=== PATIENT | male | born 1975 | race Caucasian/White ===

== ENCOUNTER → 2016-10-15 | Outpatient (CLI) | payer OTHER | LOC: RAD 18:19 | PROVIDERS: ATTEND Internal Medicine | DX: C83.38 Diffuse large B-cell lymphoma, lymph nodes of multiple sites (principal) | CPT/HCPCS: 78815; A9552 ==

== ENCOUNTER 2016-12-12 14:59 | Outpatient (CLI) | payer OTHER ==
[2016-12-12 15:28] LABS: HEMATOCRIT 24.7 % (37.9-51.0); HEMOGLOBIN 8.9 g/dL (13.5-17.0); MEAN CORPUSCULAR HGB CONC 35.9 g/dL (32.0-36.0); MEAN CORPUSCULAR VOLUME 95 fl (80-97); RED BLOOD COUNT 2.61 10^6/uL (4.35-5.55); RED CELL DISTRIBUTION WIDTH 11.6 % (11.5-14.0)
[2016-12-12] MEDS ORDERED: NORMAL SALINE 1000 ML 1,000 ML IV PRN (15:33)
[2016-12-12 16:00] LABS: WHITE BLOOD COUNT 1.4 10^3/uL (4.0-10.5)
[2016-12-12] MEDS ORDERED: DIPHENHYDRAMINE HCL 25 MG CAPSULE PO PRN (16:00)
[2016-12-12] MEDS ORDERED: ACETAMINOPHEN 325 MG TABLET PO PRN (16:00)
[2016-12-12 17:07] VITALS: BP 102/65
[2016-12-13 13:56] LABS: PATH REVIEW PATHOLOGIST REVIEWED
== END 2016-12-12 17:30 | disposition home or self-care (01) ==
LOC: II 14:59 → 2N 15:02 → II 17:30
PROVIDERS: ATTEND Internal Medicine
PROC: 30233N1 Transfusion of Nonautologous Red Blood Cells into Peripheral Vein, Percutaneous Approach (ICD-10-PCS; principal; 2016-12-12)
DX: D69.6 Thrombocytopenia, unspecified (principal)
CPT/HCPCS: 86900; 86901; 36415; 36430; P9035

== ENCOUNTER 2016-12-13 10:35 | Outpatient (CLI) | payer OTHER ==
[~2016-12-13 10:35] MED LIST: NORMAL SALINE 1000 ML 1,000 ML IV PRN
[2016-12-13 11:08] LABS: HEMATOCRIT 22.3 % (37.9-51.0); HGB HCT DIFFERENCE 1.7; MEAN CORPUSCULAR HEMOGLOBIN 33.9 pg (27.0-33.4); MEAN CORPUSCULAR VOLUME 94 fl (80-97); RED BLOOD COUNT 2.37 10^6/uL (4.35-5.55); RED CELL DISTRIBUTION WIDTH 11.7 % (11.5-14.0)
[2016-12-13] MEDS ORDERED: ACETAMINOPHEN 325 MG TABLET PO PRN (11:30)
[2016-12-13] MEDS ORDERED: DIPHENHYDRAMINE HCL 25 MG CAPSULE PO PRN (11:30)
[2016-12-13 12:54] VITALS: BP 108/68
== END 2016-12-13 13:00 | disposition home or self-care (01) ==
LOC: II 10:35 → 2N 10:36 → II 13:00
PROVIDERS: ATTEND Internal Medicine
PROC: 30243R1 Transfusion of Nonautologous Platelets into Central Vein, Percutaneous Approach (ICD-10-PCS; principal; 2016-12-13)
DX: D69.6 Thrombocytopenia, unspecified (principal)
CPT/HCPCS: 86900; 86901; 36415; 36430; P9035

== ENCOUNTER 2016-12-15 15:34 | Outpatient (CLI) | payer OTHER ==
[~2016-12-15 15:34] MED LIST changes: +ACETAMINOPHEN 325 MG TABLET PO PRN; +DIPHENHYDRAMINE HCL 25 MG CAPSULE PO PRN; +FUROSEMIDE INJ/PF 20 MG/2 ML SDV IV PRN
[2016-12-15 16:21] LABS: MEAN CORPUSCULAR HEMOGLOBIN 34.1 pg (27.0-33.4); MEAN CORPUSCULAR HGB CONC 35.8 g/dL (32.0-36.0); MEAN CORPUSCULAR VOLUME 95 fl (80-97); RED BLOOD COUNT 2.22 10^6/uL (4.35-5.55); RED CELL DISTRIBUTION WIDTH 11.7 % (11.5-14.0)
[2016-12-15 16:45] LABS: WHITE BLOOD COUNT 6.8 10^3/uL (4.0-10.5)
[2016-12-15 16:49] LABS: HEMATOCRIT 21.2 % (37.9-51.0); HGB HCT DIFFERENCE 1.6
[2016-12-15 16:51] LABS: HEMOGLOBIN 7.6 g/dL (13.5-17.0)
[2016-12-16 03:48] VITALS: BP 128/84
== END 2016-12-16 03:52 | disposition home or self-care (01) ==
LOC: II 15:34 → 2S 15:41 → 2N 16:13 → II 12-16 03:52
PROVIDERS: ATTEND Internal Medicine
PROC: 30243N1 Transfusion of Nonautologous Red Blood Cells into Central Vein, Percutaneous Approach (ICD-10-PCS; principal; 2016-12-15)
DX: C83.30 Diffuse large B-cell lymphoma, unspecified site (principal)
CPT/HCPCS: 86900; 86901; 36430; 86850; 86920; P9016; P9035

== ENCOUNTER 2017-01-04 15:24 | Outpatient (CLI) | payer OTHER ==
[~2017-01-04 15:24] MED LIST changes: -FUROSEMIDE INJ/PF 20 MG/2 ML SDV IV PRN; -NORMAL SALINE 1000 ML 1,000 ML IV PRN
[2017-01-04 17:47] LABS: HEMATOCRIT 22.6 % (37.9-51.0); HEMOGLOBIN 8.2 g/dL (13.5-17.0); MEAN CORPUSCULAR HEMOGLOBIN 31.2 pg (27.0-33.4); MEAN CORPUSCULAR HGB CONC 36.2 g/dL (32.0-36.0); RED BLOOD COUNT 2.62 10^6/uL (4.35-5.55); RED CELL DISTRIBUTION WIDTH 20.4 % (11.5-14.0)
[2017-01-04 18:44] LABS: MEAN CORPUSCULAR VOLUME 86 fl (80-97)
[2017-01-04 20:54] VITALS: BP 122/81
[2017-01-08 19:53] LABS: PATH REVIEW PATHOLOGIST REVIEWED
== END 2017-01-04 21:54 | disposition home or self-care (01) ==
LOC: II 15:24 → 2N 15:25 → II 21:54
PROVIDERS: ATTEND Internal Medicine
PROC: 30233N1 Transfusion of Nonautologous Red Blood Cells into Peripheral Vein, Percutaneous Approach (ICD-10-PCS; principal; 2017-01-04)
DX: D69.6 Thrombocytopenia, unspecified (principal)
CPT/HCPCS: 86900; 86901; 36415; 36430; P9035

== ENCOUNTER 2017-01-08 14:48 | Outpatient (CLI) | payer OTHER ==
[2017-01-08] MEDS ORDERED: DIPHENHYDRAMINE HCL 25 MG CAPSULE PO PRN (15:22)
[2017-01-08] MEDS ORDERED: ACETAMINOPHEN 325 MG TABLET PO PRN (15:22)
[2017-01-08] MEDS ORDERED: FUROSEMIDE INJ/PF 20 MG/2 ML SDV IV PRN (15:23)
[2017-01-08] MEDS ORDERED: NORMAL SALINE 250 ML IV PRN (15:29)
[2017-01-08 15:30] LABS: HGB HCT DIFFERENCE 1.8; MEAN CORPUSCULAR HEMOGLOBIN 30.9 pg (27.0-33.4); MEAN CORPUSCULAR HGB CONC 36.6 g/dL (32.0-36.0); MEAN CORPUSCULAR VOLUME 84 fl (80-97); RED BLOOD COUNT 2.13 10^6/uL (4.35-5.55); RED CELL DISTRIBUTION WIDTH 20.3 % (11.5-14.0); WHITE BLOOD COUNT 2.4 10^3/uL (4.0-10.5)
[2017-01-08 15:57] LABS: HEMOGLOBIN 6.6 g/dL (13.5-17.0)
[2017-01-09 11:45] VITALS: BP 110/73
== END 2017-01-09 12:07 | disposition home or self-care (01) ==
LOC: II 14:48 → 5 14:54 → II 01-09 12:07
PROVIDERS: ATTEND Internal Medicine
PROC: 30243R1 Transfusion of Nonautologous Platelets into Central Vein, Percutaneous Approach (ICD-10-PCS; principal; 2017-01-08)
PROC: 30243N1 Transfusion of Nonautologous Red Blood Cells into Central Vein, Percutaneous Approach (ICD-10-PCS; 2017-01-08)
PROC: 30243R1 Transfusion of Nonautologous Platelets into Central Vein, Percutaneous Approach (ICD-10-PCS; 2017-01-09)
DX: D69.6 Thrombocytopenia, unspecified (principal); D64.81 Anemia due to antineoplastic chemotherapy
CPT/HCPCS: 36415; 36430; 86850; 86900; 86901; 86920; J1940; P9016; P9035

== ENCOUNTER → 2017-10-23 | Outpatient (CLI) | payer OTHER ==
--- NOTE | 2017-10-24 09:36 | RADIOLOGY REPORT (SQ) ---
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 TECHNIQUE: Blood glucose level was verified. Above dose of FDG was injected intravenously. 2-D seg mented attenuation correction images were obtained from the base of the skull to the midthighs. Nonc ontrast CT images were obtained for attenuation correction and fusion with emission images. CT image s were performed without oral or intravenous contrast and are not sensitive for parenchymal lesions. A series of overlapping emission PET images were obtained. [facility] by the radiologist. Images stored on PACS. LIMITATIONS: None. FINDINGS: HEAD AND NECK: A punctate focus of increased metabolic activity is seen in the anterior ed ge left submandibular gland, with SUV of 5.8. This is abnormal but nonspecific. No discrete mass is identified in this region on the noncontrast CT portion of the exam. CHEST: No areas of abnormal metabolic activity in the chest. Specifically, left lower hilar nodule s een on 10/15/2016 is no longer identified. ABDOMEN AND PELVIS: In the right lower quadrant mesenteries to the ileocolic region, a 3.9 x 2 cm sof t tissue mass is present which is non metabolic, with SUV of 1.0 (was 4.5 x 3 cm in size with SUV 4.8 to 7.3 on 10/15/2016). There is a tiny focus of metabolic activity in the splenic flexure of colon with SUV of 4.3, nonspeci fic. PROXIMAL LOWER EXTREMITIES: No areas of abnormal metabolic activity in the soft tissues of the lower extremities. BONES: No abnormal metabolic activity in the visualized skeleton. ADDITIONAL CT FINDINGS: Right-sided permanent central line tip in the superior vena cava. Stones in the gallbladder. Mild splenomegaly without abnormal increased activity. OTHER: Liver background activity 2.4 SUV. Blood pool background activity 1.7 SUV IMPRESSION: No hypermetabolic adenopathy report. No pathologic activity in the spleen. Right lower quadrant soft tissue mass along the right colon mesenteries is non metabolic and smaller on today's exam Incidental finding of punctate foci of increased uptake in the left submandibular gland and hepatic f lexure colon, of uncertain clinical significance TECHNICAL DOCUMENTATION: JOB ID: [id number] [employer]- All Rights Reserved
== END ==
LOC: RAD 15:42
PROVIDERS: ATTEND Internal Medicine
DX: C83.38 Diffuse large B-cell lymphoma, lymph nodes of multiple sites (principal)
CPT/HCPCS: 78815; A9552

== ENCOUNTER → 2017-12-30 | Outpatient (CLI) | payer OTHER ==
--- NOTE | 2017-12-31 08:06 | RADIOLOGY REPORT (SQ) ---
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 TECHNIQUE: Blood glucose level was verified. Above dose of FDG was injected intravenously. 2-D seg mented attenuation correction images were obtained from the base of the skull to the midthighs. Nonc ontrast CT images were obtained for attenuation correction and fusion with emission images. CT image s were performed without oral or intravenous contrast and are not sensitive for parenchymal lesions. A series of overlapping emission PET images were obtained. Images reviewed and manipulated at [email or web address] work station by the radiologist. Images stored on PACS. LIMITATIONS: None. FINDINGS: HEAD AND NECK: There is a punctate focus of increased uptake in a nonenlarged left submand ibular gland. Metabolic activity suv 5.8. this could represent inflammation from sialadenitis. Inf ection or tumor could not entirely be excluded CHEST: No areas of abnormal metabolic activity in the chest. ABDOMEN AND PELVIS: No abnormal increased metabolic activity in the abdomen or pelvis. There is non metabolic right lower quadrant soft tissue along the superior aspect of the distal ileum /ileocecal valve. Currently this measures 2.7 x 1.1 cm on axial image 174 (was 3.8 x 2 cm on 10/23/19 18 and 3.2 x 1.6 cm on 08/14/2017). PROXIMAL LOWER EXTREMITIES: No areas of abnormal metabolic activity in the soft tissues of the lower extremities. BONES: No abnormal metabolic activity in the visualized skeleton. ADDITIONAL CT FINDINGS: Stones in the gallbladder without gallbladder wall thickening or pericholecys tic fluid. Right jugular central line tip superior vena cava OTHER: Liver background activity 2.5 SUV. Blood pool background activity 1.8 SUV. IMPRESSION: Further decrease in size of non metabolic soft tissue in the right lower quadrant along previous area of lymphoma. Incidental finding of punctate increased uptake in the left submandibular gland of uncertain clinical significance. Gland is not enlarged. No surrounding inflammatory change in the surrounding fat TECHNICAL DOCUMENTATION: JOB ID: [id number] [employer]- All Rights Reserved Reading location - IP/workstation name: [email or web address]
== END ==
LOC: RAD 15:07
PROVIDERS: ATTEND Internal Medicine
DX: C83.38 Diffuse large B-cell lymphoma, lymph nodes of multiple sites (principal)
CPT/HCPCS: 78815; A9552

== ENCOUNTER → 2018-03-24 | Outpatient (CLI) | payer OTHER ==
--- NOTE | 2018-03-25 08:31 | RADIOLOGY REPORT (SQ) ---
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 TECHNIQUE: Blood glucose level was verified. Above dose of FDG was injected intravenously. 2-D seg mented attenuation correction images were obtained from the base of the skull to the midthighs. Nonc ontrast CT images were obtained for attenuation correction and fusion with emission images. CT image s were performed without oral or intravenous contrast and are not sensitive for parenchymal lesions. A series of overlapping emission PET images were obtained. Images reviewed and manipulated at [facility] work station by the radiologist. Images stored on PACS. LIMITATIONS: None. FINDINGS: HEAD AND NECK: There is persistent increased activity in the left submandibular gland, wit h SUV of 6.7. This is more prominent than on previous studies. Sialadenitis versus salivary gland t umor. CHEST: No areas of abnormal metabolic activity in the chest. ABDOMEN AND PELVIS: The right lower quadrant mass along the ileocecal valve and distal ileum is no lo nger identified. No adenopathy or metabolically active masses in the abdomen or pelvis PROXIMAL LOWER EXTREMITIES: No areas of abnormal metabolic activity in the soft tissues of the lower extremities. BONES: No abnormal metabolic activity in the visualized skeleton. ADDITIONAL CT FINDINGS: Stones in the gallbladder without gallbladder wall thickening. Right-sided c entral line tip superior vena cava. OTHER: Liver background SUV 2.9. Blood pool background activity 2.0 SUV. IMPRESSION: The primary lesion along the right lower quadrant, ileocecal valve region is no longer i dentified. Persistent abnormal increased activity in the left submandibular gland. Tumor versus sialadenitis. TECHNICAL DOCUMENTATION: JOB ID: [id number]- All Rights Reserved Reading location - IP/workstation name: [email or web address]
== END ==
LOC: RAD 15:20
PROVIDERS: ATTEND Physician Assistant Medical
DX: C83.38 Diffuse large B-cell lymphoma, lymph nodes of multiple sites (principal)
CPT/HCPCS: 78815; A9552

== ENCOUNTER → 2018-06-30 | Outpatient (CLI) | payer OTHER ==
--- NOTE | 2018-07-01 11:10 | RADIOLOGY REPORT (SQ) ---
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 TECHNIQUE: Blood glucose level was verified. Above dose of FDG was injected intravenously. 2-D seg mented attenuation correction images were obtained from the base of the skull to the midthighs. Nonc ontrast CT images were obtained for attenuation correction and fusion with emission images. CT image s were performed without oral or intravenous contrast and are not sensitive for parenchymal lesions. A series of overlapping emission PET images were obtained. Images reviewed and manipulated at [facility] work station by the radiologist. Images stored on PACS. LIMITATIONS: None. FINDINGS: HEAD AND NECK: There is persistent increased uptake in the posterior half of the left subm andibular gland with SUV of 8.1 (was 6.7 SUV on 03/24/2018). This is worrisome for focal tumor versus chronic inflammation. CHEST: No areas of abnormal metabolic activity in the chest. ABDOMEN AND PELVIS: No areas of abnormal metabolic activity in the abdomen or pelvis. Expected physi ologic activity is present in the genitourinary system and bowel. The right lower quadrant mass sandy g the ileocecal valve and distal ileum is no longer identified. PROXIMAL LOWER EXTREMITIES: No areas of abnormal metabolic activity in the soft tissues of the lower extremities. BONES: No abnormal metabolic activity in the visualized skeleton. ADDITIONAL CT FINDINGS: Calcified gallstones without gallbladder wall thickening. Right permanent ce ntral line tip superior vena cava. OTHER: Liver background activity 2.5 SUV. Blood pool background activity 1.5 SUV IMPRESSION: Persistent left submandibular gland activity worrisome for tumor. Inflammation is possi ble No findings worrisome for recurrent lymphoma in the right lower quadrant TECHNICAL DOCUMENTATION: JOB ID: [id number]- All Rights Reserved Reading location - IP/workstation name: [email or web address]
== END ==
LOC: RAD 15:26
PROVIDERS: ATTEND Internal Medicine
DX: C83.38 Diffuse large B-cell lymphoma, lymph nodes of multiple sites (principal)
CPT/HCPCS: 78815; A9552

== ENCOUNTER → 2018-09-29 | Outpatient (CLI) | payer OTHER ==
--- NOTE | 2018-09-30 09:06 | RADIOLOGY REPORT (SQ) ---
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 TECHNIQUE: Blood glucose level was verified. Above dose of FDG was injected intravenously. 2-D seg mented attenuation correction images were obtained from the base of the skull to the midthighs. Nonc ontrast CT images were obtained for attenuation correction and fusion with emission images. CT image s were performed without oral or intravenous contrast and are not sensitive for parenchymal lesions. A series of overlapping emission PET images were obtained. Images [facility] and manipulated at [facility] by the radiologist. Images stored on PACS. LIMITATIONS: None. FINDINGS: HEAD AND NECK: Again, there is increased uptake along the anterior half of the left subman dibular gland, with SUV of 6.8. This could indicate a small tumor or inflammatory change in the left submandibular gland. CHEST: No areas of abnormal metabolic activity in the chest. ABDOMEN AND PELVIS: Bandlike non metabolic right lower quadrant mesenteric scar tissue is present on axial image 170. This is similar compared to previous studies. At the ileocecal valve, a 1.3 cm focus of increased metabolic activity is present on axial image 174 with SUV of 3.4. This finding is abnormal but nonspecific, and could reflect tumor recurrence along the ileocecal valve region. PROXIMAL LOWER EXTREMITIES: No areas of abnormal metabolic activity in the soft tissues of the lower extremities. BONES: No abnormal metabolic activity in the visualized skeleton. ADDITIONAL CT FINDINGS: Stones in the gallbladder. Right-sided permanent central line tip superior v mariana cava. OTHER: Liver background activity 2.6 SUV. Blood pool background activity 1.6 SUV IMPRESSION: Single focus of increased uptake along the right ileocecal valve region, nonspecific. T his could represent tumor recurrence. TECHNICAL DOCUMENTATION: JOB ID: [id number] [employer]- All Rights Reserved Reading location - IP/workstation name: [email or web address]
== END ==
LOC: RAD 15:13
PROVIDERS: ATTEND Internal Medicine
DX: C83.38 Diffuse large B-cell lymphoma, lymph nodes of multiple sites (principal)
CPT/HCPCS: 78815; A9552

== ENCOUNTER → 2018-12-29 | Outpatient (CLI) | payer MEDICARE, OTHER ==
--- NOTE | 2018-12-30 09:50 | RADIOLOGY REPORT (SQ) ---
EXAM DESCRIPTION: PET CT SKULL/THIGH COMPLETED DATE/TIME: 12/29/2018 9:21 pm REASON FOR STUDY: C83.38 DIFFUSE LARGE B-CELL LYMPHOMA, LYMPH NODES OF MULTIPLE SITES C83.38 DIFFUS E LARGE B-CELL LYMPHOMA, LYMPH NODES OF MULTIPL COMPARISON: PET-CT 09/29/2018, 06/30/2018, 03/24/2018, 10/23/2017 RADIONUCLIDE AND DOSE: 11.4 mCi F18 FDG The route of agent administration: Intravenous FASTING BLOOD SUGAR: 93 mg/dl CONTRAST TYPE AND DOSE: No CT contrast given. TECHNIQUE: Blood glucose level was verified. Above dose of FDG was injected intravenously. 2-D seg mented attenuation correction images were obtained from the base of the skull to the midthighs. Nonc ontrast CT images were obtained for attenuation correction and fusion with emission images. CT image s were performed without oral or intravenous contrast and are not sensitive for parenchymal lesions. A series of overlapping emission PET images were obtained. Images [facility] by the radiologist. Images stored on PACS. LIMITATIONS: None. FINDINGS: HEAD AND NECK: Persistent punctate focus of increased metabolic activity left submandibula r gland of uncertain significance, SUV 3.9 on today's study (was SUV 6.8 09/29/2018). CHEST: No areas of abnormal metabolic activity in the chest. ABDOMEN AND PELVIS: A 2.3 x 1.7 cm nodule is present along the ventral aspect of the ileocecal valve with SUV of 10.1 to 11.7. This is best shown on axial image 170-175 (was 1.3 cm greatest diameter w ith SUV 3.4 on 09/29/2018). Non metabolic bandlike scar persists in the right lower quadrant mesenteries on axial image 166, 2.8 x 1 cm in size with SUV less than 1. This is stable compared to multiple previous studies. PROXIMAL LOWER EXTREMITIES: No areas of abnormal metabolic activity in the soft tissues of the lower extremities. BONES: No abnormal metabolic activity in the visualized skeleton. ADDITIONAL CT FINDINGS: Calcified gallstone in the gallbladder. Right permanent central line tip sup erior vena cava. Diffuse degenerative disc changes throughout the spine OTHER: Liver background activity 2.9 SUV. Blood pool background activity 1.8 SUV IMPRESSION: Increasing size and metabolic activity of a nodule along the ventral aspect of the ileoc ecal valve. This is worrisome for recurrent lymphoma. TECHNICAL DOCUMENTATION: JOB ID: [id number] [employer]- All Rights Reserved Reading location - IP/workstation name: [email or web address]
== END ==
LOC: RAD 19:52
PROVIDERS: ATTEND Internal Medicine
DX: C83.38 Diffuse large B-cell lymphoma, lymph nodes of multiple sites (principal); K80.80 Other cholelithiasis without obstruction
CPT/HCPCS: 78815; A9552

== ENCOUNTER 2019-02-06 09:10 | Outpatient (CLI) | payer MEDICARE, OTHER ==
[~2019-02-06 09:10] MED LIST changes: +DIPHENHYDRAMINE 50 MG in NS 50 ML IV PRN; -DIPHENHYDRAMINE HCL 25 MG CAPSULE PO PRN; +NIVOLUMAB 240 MG in NORMAL SALINE 50 ML IV PRN; +NORMAL SALINE 250 ML @ KVO IV PRN; +NORMAL SALINE 250 ML IV PRN
[2019-02-06 09:46] VITALS: BP 125/91
== END 2019-02-06 10:57 | disposition home or self-care (01) ==
LOC: II 09:10 → 5TH 09:29 → II 10:57
PROVIDERS: ATTEND Internal Medicine
PROC: 3E0430M Introduction of Antineoplastic, Monoclonal Antibody, into Central Vein, Percutaneous Approach (ICD-10-PCS; principal; 2019-02-06)
DX: Z51.11 Encounter for antineoplastic chemotherapy (principal); C83.38 Diffuse large B-cell lymphoma, lymph nodes of multiple sites
CPT/HCPCS: 96413; J1642; J9299; J1200

== ENCOUNTER 2019-02-20 13:19 | Outpatient (CLI) | payer MEDICARE, OTHER ==
[2019-02-20 13:45] VITALS: BP 130/69
[2019-02-20] MEDS ORDERED: NIVOLUMAB 240 MG in NORMAL SALINE 50 ML IV PRN (13:48)
[2019-02-20] MEDS ORDERED: NORMAL SALINE 250 ML IV PRN (14:00)
== END 2019-02-20 15:10 | disposition home or self-care (01) ==
LOC: II 13:19
PROVIDERS: ATTEND Internal Medicine
PROC: 3E0430M Introduction of Antineoplastic, Monoclonal Antibody, into Central Vein, Percutaneous Approach (ICD-10-PCS; principal; 2019-02-20)
DX: Z51.11 Encounter for antineoplastic chemotherapy (principal); C83.38 Diffuse large B-cell lymphoma, lymph nodes of multiple sites
CPT/HCPCS: 96413; J1642; J9299

== ENCOUNTER 2019-03-06 13:50 | Outpatient (CLI) | payer MEDICARE, OTHER ==
[~2019-03-06 13:50] MED LIST changes: -ACETAMINOPHEN 325 MG TABLET PO PRN; -DIPHENHYDRAMINE 50 MG in NS 50 ML IV PRN; -NORMAL SALINE 250 ML @ KVO IV PRN
[2019-03-06 14:10] VITALS: BP 113/62
== END 2019-03-06 15:04 | disposition home or self-care (01) ==
LOC: II 13:50 → 5TH 13:52 → II 15:04
PROVIDERS: ATTEND Internal Medicine
PROC: 3E0430M Introduction of Antineoplastic, Monoclonal Antibody, into Central Vein, Percutaneous Approach (ICD-10-PCS; principal; 2019-03-06)
DX: Z51.11 Encounter for antineoplastic chemotherapy (principal); C83.38 Diffuse large B-cell lymphoma, lymph nodes of multiple sites
CPT/HCPCS: 96413; J1642; J9299; 96374

== ENCOUNTER 2019-03-20 13:54 | Outpatient (CLI) | payer MEDICARE, OTHER ==
[2019-03-20 14:15] VITALS: BP 122/85
== END 2019-03-20 15:04 | disposition home or self-care (01) ==
LOC: II 13:54 → 5TH 13:57 → II 15:04
PROVIDERS: ATTEND Internal Medicine
PROC: 3E0430M Introduction of Antineoplastic, Monoclonal Antibody, into Central Vein, Percutaneous Approach (ICD-10-PCS; principal; 2019-03-20)
DX: Z51.11 Encounter for antineoplastic chemotherapy (principal); C83.38 Diffuse large B-cell lymphoma, lymph nodes of multiple sites
CPT/HCPCS: 96413; J1642; J9299; 96374

== ENCOUNTER → 2019-03-30 | Outpatient (CLI) | payer MEDICARE, OTHER ==
--- NOTE | 2019-03-31 08:47 | RADIOLOGY REPORT (SQ) ---
EXAM DESCRIPTION: PET CT SKULL/THIGH COMPLETED DATE/TIME: 03/30/2019 8:02 pm REASON FOR STUDY: (C83.38)DIFFUSE LARGE B-CELL LYMPHOMA, LYMPH NODES OF MULTIPLE SITES C83.38 DIFFU SE LARGE B-CELL LYMPHOMA, LYMPH NODES OF MULTIPL COMPARISON: Prior PET-CT 12/29/2018, 09/29/2018, 06/30/2018 RADIONUCLIDE AND DOSE: 10.7 mCi F18 FDG The route of agent administration: Intravenous FASTING BLOOD SUGAR: 109 mg/dl CONTRAST TYPE AND DOSE: No CT contrast given. TECHNIQUE: Blood glucose level was verified. Above dose of FDG was injected intravenously. 2-D seg mented attenuation correction images were obtained from the base of the skull to the midthighs. Nonc ontrast CT images were obtained for attenuation correction and fusion with emission images. CT image s were performed without oral or intravenous contrast and are not sensitive for parenchymal lesions. A series of overlapping emission PET images were obtained. Images reviewed and manipulated at [facility] work station by the radiologist. Images stored on PACS. LIMITATIONS: None. FINDINGS: HEAD AND NECK: No areas of abnormal metabolic activity in the soft tissues of the head and neck. CHEST: No areas of abnormal metabolic activity in the chest. ABDOMEN AND PELVIS: No areas of abnormal metabolic activity in the abdomen or pelvis. Expected physi ologic activity is present in the genitourinary system and bowel. PROXIMAL LOWER EXTREMITIES: No areas of abnormal metabolic activity in the soft tissues of the lower extremities. BONES: No abnormal metabolic activity in the visualized skeleton. ADDITIONAL CT FINDINGS: Right-sided permanent central line tip superior vena cava. Stones in the gal lbladder without CT signs of acute cholecystitis OTHER: Liver background activity 3.3 SUV. Blood pool background activity 1.9 SUV IMPRESSION: No findings worrisome for recurrent lymphoma TECHNICAL DOCUMENTATION: JOB ID: [id number] [employer]- All Rights Reserved Reading location - IP/workstation name: [email or web address]
== END ==
LOC: RAD 16:22
PROVIDERS: ATTEND Physician Assistant Medical
DX: C83.38 Diffuse large B-cell lymphoma, lymph nodes of multiple sites (principal)
CPT/HCPCS: 78815; A9552